=== PATIENT | male | born 1950 | race Caucasian/White ===

== ENCOUNTER 2016-11-04 05:42 | Day surgery (SDC) | payer OTHER ==
[2016-11-04] VITALS (11 sets, daily range): BP systolic 92–128; BP diastolic 55–81; PULSE 53–74; RESP 8–20; O2SAT 93–100
[~2016-11-04] VITALS: Ht 175.3 cm; Wt 119.3 kg
[~2016-11-04 05:42] MED LIST: LIP40 PO; LISI-567 PO; Lactated Ringer's 1,000 ML IV ONE; METO50TA3 PO
[2016-11-04] MEDS ORDERED: EPHEDrine/NS 5 mg/mL 5 mL Syringe ONE (05:43)
[2016-11-04] MEDS ORDERED: Dexamethasone 4 mg/mL Inj ONE (05:43)
[2016-11-04] MEDS ORDERED: Propofol 10,000 mCg/mL 20 mL Inj ONE (05:43)
[2016-11-04] MEDS ORDERED: Lidocaine PF 1% 30 mL Inj ONE (05:43)
[2016-11-04] MEDS ORDERED: Ondansetron 2 mg/mL 2 mL Inj ONE (05:43)
[2016-11-04] MEDS ORDERED: Phenylephrine/NS 100 mCg/mL 10 mL Syringe IVPUSH ONE (05:43)
[2016-11-04] MEDS ORDERED: fentaNYL-PF 50 mCg/mL 2 mL Inj ONE (05:43)
[2016-11-04] MEDS ORDERED: Ampicillin-Sulbactam 3,000 mg/100 mL NS IV ONE ×2 (06:00)
[2016-11-04] MEDS ORDERED: Acetaminophen IV 1,000 mg IV ONE (06:00)
[2016-11-04] MEDS ORDERED: Lactated Ringer's 1,000 ML IV ONE (06:03)
[2016-11-04] MEDS ORDERED: Lactated Ringer's 500 ML IV PRN (07:44)
[2016-11-04] MEDS ORDERED: Lactated Ringer's 1,000 ML IV SCH (07:44)
--- NOTE | 2016-11-04 07:44 | PCM.HPANE ---
Patient Data Surgeon Admitting Provider: Attending Provider:Jennifer Thomas MD Primary Care Physician:Vahid Brizuela MD Other Provider:[facility] Reason for Visit Bladder Stone Ht/WT & BMI Height (Feet): 5 Height (Inches): 9.00 Weight (Kilograms): 119.290 Body Mass Index 38.00 Allergies Coded Allergies: Sulfa (Sulfonamide Antibiotics) (Verified Allergy, Severe, 08/15/14) Past Anesthesia History Anesthesia History: Denies:: Abnormal Airway, Anesthesia Reactions (awoke during orthopedic surgery), Difficult Intubation, Fam Anesthesia Reaction Diabetes History Hx Diabetes?: No MRSA MRSA: No Medications Hypertension Medication: Yes Home Meds Incl Beta Stu: Yes (metropolol) Date Beta Stu Taken: Nov 04, 2016 Time Beta Stu Taken: 0500 Reported Medications Atorvastatin (Lipitor)40 Mg [id number] Mg PO DAILY Ref 0 10/31/16 Metoprolol Tartrate 50 Mg [id number] Mg PO DAILY 30 Days Ref 0 10/31/16 Lisinopril 20 Mg [id number] Mg PO DAILY 30 Days Ref 0 10/31/16 Discontinued Reported Medications Metoprolol Succinate ER 50 Mg Tab.er.[id number] Mg PO DAILY 30 Days Ref 0 08/11/14 Famciclovir 250 Mg [id number] Mg PO TID PRN rash Ref 0 08/11/14 History History of ENT Problems?: No HEENT History: Denies:: Abnormal Airway Cataracts Difficult Intubation Dysphagia Glaucoma Hearing Problem Sinus Problem TMJ Hx of Heart Problems?: Yes Cardiovascular History: Positive for:: Hypertension Denies:: AICD Edema Heart Murmur Irregular Heartbeat Pacemaker Peripheral Vascular Hx of Respiratory Problem?: No Respiratory History: Denies:: Asthma COPD Emphysema Oxygen Administration Pneumonia Tuberculosis Use of C-PAP Machine Use of Inhalers / NEBS Hx Neurologic Problems?: No Neurological History: Denies:: CVA Dementia Dizziness Headaches Multiple Sclerosis Parkinson's Disease Seizures TIA Hx of GI Problems?: No Gastrointestinal History: Denies:: Cirrhosis Gall Bladder Disease Gastroesphageal Reflux (occasional) Gastrointestinal Bleeding Heartburn Hepatitis Hiatal Hernia Liver Disease Rectal Bleeding Hx of Problems?: Yes Genitourinary History: Positive for:: Kidney Stones (past hx of, passed spontaneously) Urinary Tract Infection (ongoing ) Male Hx: Positive for:: Prostate Problems (PROSTATE CA) Testicular Surgery (VASECTOMY) Skin History: Denies:: History Skin Disorders? Pressure Ulcers Hx Musculoskeletal Problems?: No Musculoskeletal History: Denies:: Back Injury Joint Replacement Musculoskeletal Trauma Myasthenia Gravis Osteoarthritis Rheumatoid Arthritis Hx of Psycho/Social Problems?: No Psycho Social History: Denies:: Anxiety Hx Depression Hx Surgeries?: Yes (PROSTATE BX, VASECTOMY) Hx Any Other Health Problems?: Yes Other History: Positive for:: Cancer (PROSTATE CA) Denies:: Thyroid Disease History Blood Transfusions: Positive for:: Accept Blood Products? Blood Transfusions (poss after prostate surgery) Denies:: Blood Transfuse Reaction Hx Diabetes: No Hx Alcohol Use: YesAlcoholic Drinks Per Day: a drink dailyHx Substance Use: No Smoking Status: Former Smoker Have You Smoked inLast 12 mo: No Stop/Bang S-Snoring: Do You Snore Loudly: Yes T-Tired: feel tired, fatigued: No O-Obsered: Observed not breath: No P-Blood Pressure: treated: Yes B- Body Mass Index > 35 kg/m2: Yes A- Age over 50: Yes N- Neck Large Circumference: No G- Gender Male: Yes DOROTHY Total Score: 5 DOROTHY Risk Assessment: High Risk, =/>3 Yes DOROTHY Category 4 OutPt Procedure: Yes Risk Assessment Category Category 1A: Patient has history of documented sleep apnea, and HAS NOT received any narcotic, sedative or anesthesia administration during this stay. Category 1B: Patient has history of documented sleep apnea, and HAS received any narcotic , sedative or anesthesia administration during this stay Category 2: Patient has SUSPECTED Obstructive Sleep Apnea, and HAS received any narcotic , sedative or anesthesia administration during this stay. Category 3: Patient has SUSPECTED Obstructive Sleep Apnea and HAS NOT received narcotic, sedative or anesthesia administration during this stay. Category 4: Outpatient in Procedural Areas with known sleep apnea or who screen positive for High Risk via the STOP/BANG questionnaire. Exam Exam Vital Signs Vital Signs Date Time Temp Pulse Resp B/P Pulse Ox O2 Delivery O2 Flow Rate FiO2 11/04/16 06:04 36.6 65 20 128/81 96 Room Air General Appearance: Alert, Oriented X3, Cooperative HEENT/AIRWAY: MP 3 Lungs: Clear to Auscultation Heart: Exam Unremarkable Meds/Labs/Diagnostics Admission Meds Current Medications Acetaminophen 1000 mg/Premix 100 ml @ 400 mls/hr PREOP ONCE IV Last administered on 11/04/16t 06:58; Start 11/04/16 at 06:00; Stop 11/04/16 at 06:14 ; Status DC Lactated Ringer's (Lr) 1,000 ml @ ud STK-MED ONCE IV Last administered on 11/04 06:03; Start 11/04/16 at 06:03; Stop 11/04/16 at 06:04; Status DC Plan Impression Patient chart reviewed, patient interviewed and anesthestic plan with risks, benefits, and alternatives discussed, and informed consent obtained. NPO Status: 11/03@1730 ASA Physical Status: ASA2 Mod Systemic Disease Anesthetic Plan: GA Bene/Risks/Altern/Consents: Yes HP Complete Prior to Induction: Yes Ever Villanueva DO Nov 04, 2016 07:20
[2016-11-04] MEDS ORDERED: Atropine 0.4 mg/mL Inj IVPUSH PRN (07:45)
[2016-11-04] MEDS ORDERED: EPHEDrine Sulfate 50 mg/mL Inj IVPUSH PRN (07:45)
[2016-11-04] MEDS ORDERED: hydrALAZINE 20 mg/mL Inj IVPUSH PRN (07:45)
[2016-11-04] MEDS ORDERED: Labetalol 5 mg/mL 4 mL Inj IV PRN (07:45)
[2016-11-04] MEDS ORDERED: fentaNYL-PF 50 mCg/mL 2 mL Inj IVPUSH PRN (07:45)
[2016-11-04] MEDS ORDERED: Phenylephrine 10,000 mCg/mL Inj IVPUSH PRN (07:45)
[2016-11-04] MEDS ORDERED: HYDROmorphone 1 mg/mL Inj IVPUSH PRN (07:45)
[2016-11-04] MEDS ORDERED: Dexamethasone 4 mg/mL Inj IVPUSH PRN (07:45)
[2016-11-04] MEDS ORDERED: Ondansetron 2 mg/mL 2 mL Inj IVPUSH PRN (07:45)
[2016-11-04] MEDS ORDERED: MetoCLOpramide 5 mg/mL 2 mL Inj IVPUSH PRN (07:45)
[2016-11-04] MEDS ORDERED: Belladonna Alk-Opium 60 mg Rectal Suppository RECTAL ONE (07:46)
--- NOTE | 2016-11-04 08:45 | PCM.ANEP2 ---
Post Anesthesia Evaluation ASA/CMS Post Anesthesia VS in Patient's Normal Range?: Yes Resp Stable; Airway Patent?: Yes CV Function & Hydration Stable: Yes Mental Status Recovered?: Yes Pain control Satisfactory?: Yes N/V Control Satisfactory?: Yes Ever Villanueva DO Nov 04, 2016 08:45
--- NOTE | 2016-11-04 08:45 | PCM.ANEP1 ---
Post Anesthesia Phase 1 PACU Phase 1 Assessment Vital Signs Vital Signs Date Time Temp Pulse Resp B/P Pulse Ox O2 Delivery O2 Flow Rate FiO2 11/04/16 08:35 36.4 60 18 102/57 95 Room Air 11/04/16 08:30 72 13 115/70 93 Room Air 11/04/16 08:20 36.5 69 14 116/66 94 Room Air 11/04/16 08:15 72 13 121/69 94 Room Air 11/04/16 08:10 73 14 122/67 97 Room Air 11/04/16 08:05 36.8 74 13 119/73 98 Simple Mask 8 11/04/16 06:04 36.6 65 20 128/81 96 Room Air Anesthetic Administered: GA Level of Alertness: Awake, talking RAMON's with Equal Strength: Yes Pain: No Nausea or Vomiting: No Oxygen Delivery: Simple Mask Lungs: Clear to Auscultation Ever Villanueva DO Nov 04, 2016 08:45
--- NOTE | 2016-11-05 00:51 | OP ---
[address] [address] OPERATIVE REPORT PATIENT: ANABELLE AGUIRRE : 1950 MR#: [id number] ADMIT: 11/04/2016 JOB ID: [id number] DATE OF SURGERY: 11/04/2016 PREOPERATIVE DIAGNOSIS(ES): 1. Recurrent Enterococcus urinary tract infection. 2. Bladder neck calculus. POSTOPERATIVE DIAGNOSIS(ES): 1. Recurrent Enterococcus urinary tract infection. 2. Bladder neck calculus. 3. Bladder calculi. 4. Foreign body at bladder neck as probable nidus of stone formation (plastic hemoclip). SURGEON: Jennifer Thomas MD ANESTHESIOLOGIST: Ever Villanueva MD FINDINGS: Urethra normal. External sphincter intact. Prostate surgically absent. Bladder neck approximately a 20-Bangladeshi with an obstructing calculus occluding the os. Calculus was attached posteriorly. There was an additional calculus approximately a similar size of 1 x 2 cm and oval also freely independent within the bladder. PROCEDURE SUMMARY: The patient was positioned supine and administered general anesthesia. The lower abdomen and genitalia were prepped and draped in sterile fashion. The 25-Bangladeshi panendoscope was then passed in the lower urinary tract, with the findings as described above. It was then fitted with the manual stone coal crusher operator and the bladder neck stone was dislodged with some difficulty. The foreign body was identified and removed, and thereafter, the two stones were then successfully crushed into very small pieces and these were irrigated from the bladder. Specimens were collected for both culture and for crystallographic analysis. Final inspection revealed a small amount of urothelial denudation of the posterior bladder neck and distal trigones. Normal bilateral orifices and few, if any, remaining crystals adherent to the bladder mucosa. The bladder was then drained completely and all instrumentation removed. The patient was repositioned supine, awakened, transferred to [facility], and transferred to recovery in stable condition.
[2016-11-09 09:09] LABS: Stone Color Brown (.)
== END 2016-11-04 23:59 | disposition home or self-care (01) ==
LOC: SAS 05:42
PROVIDERS: ATTEND Specialist
DX: N21.0 Calculus in bladder (principal); M79.5 Residual foreign body in soft tissue; Z87.440 Personal history of urinary (tract) infections; Z85.46 Personal history of malignant neoplasm of prostate; Z90.79 Acquired absence of other genital organ(s)
CPT/HCPCS: 52310; 52318; 82360; 87070; 87075; 87077; 87186; 87205; J0131; J0295; J1100; J2370; J2405; J7120